=== PATIENT | female | born 1955 | race Caucasian/White ===

== ENCOUNTER 2017-11-02 23:04 | Inpatient (IN) | payer MEDICARE, MEDICAID ==
[2017-11-02] MEDS ORDERED: Mag-Al 1200 mg/1200 mg/30 ML UDCUP PO PRN (23:43)
[2017-11-02] MEDS ORDERED: Lorazepam 2 MG/ML VIAL SLOW IVP PRN (23:43)
[2017-11-02] MEDS ORDERED: Bisacodyl 5 MG TAB PO PRN (23:43)
[2017-11-02] MEDS ORDERED: Acetaminophen 325 MG TAB PO PRN (23:43)
[2017-11-02] MEDS ORDERED: hydrALAZINE 20 MG/ML VIAL SLOW IVP PRN (23:43)
[2017-11-02] MEDS ORDERED: Calcium Carbonate 500 MG ChewTAB PO PRN (23:43)
[2017-11-02] MEDS ORDERED: cloNIDine 0.1 MG TAB PO PRN (23:43)
[2017-11-02] MEDS ORDERED: Promethazine HCl 25 MG/ML VIAL IM PRN (23:43)
[2017-11-02] MEDS ORDERED: Ondansetron HCl/PF 4 MG/2 ML Vial IVP PRN (23:43)
[2017-11-02] MEDS ORDERED: HYDROcodone/Acetaminophen 5/325 mg Tablet PO PRN ×2 (23:43)
[2017-11-02] MEDS ORDERED: Nitroglycerin 0.4 MG TAB (25 Tab Bottle) SL PRN (23:43)
[2017-11-02] MEDS ORDERED: Sodium Chloride 0.9% 1,000 ML IV SCH (23:45)
[2017-11-02] MEDS ORDERED: Morphine 2 MG/ML SYRINGE SLOW IVP PRN (23:49)
[2017-11-02] MEDS ORDERED: Dextrose 5% in Water 1,000 ML IV PRN (23:50)
[2017-11-02] MEDS ORDERED: Dextrose 50% Abboject 50 ML SYRINGE SLOW IVP PRN (23:50)
[2017-11-02] MEDS ORDERED: HumaLOG 300 UNITS/3 ML VIAL SC PRN ×2 (23:50)
[2017-11-03] MEDS ORDERED: Morphine 4 MG/ML VIAL ONE (01:00)
[2017-11-03] MEDS ORDERED: Ondansetron HCl/PF 4 MG/2 ML Vial ONE (01:00)
[2017-11-03 01:59] LABS: #Eosinphils 0.4 thou/uL (0.0-0.7); #Lymphocytes 1.4 thou/uL (1.20-3.40); #Monocytes 1.1 thou/uL (0.11-0.59); #Neutrophils 12.2 thou/uL (1.40-6.50); %Basophils 0.2 % (0.0-1.0); %Eosinophils 2.8 % (0.0-10.0); %Lymphocytes 9.4 % (21.0-51.0); %Monocytes 7.2 % (0.0-10.0); %Neutrophils 80.5 % (42.0-75.0); Hemoglobin 13.2 g/dL (12.0-16.0); Mean Corpuscular HGB CONC 32.3 g/dL (32.0-36.0); Mean Corpuscular Hemoglobin 29.7 pg (27.0-31.0); Mean Corpuscular Volume 92.2 fl (81.0-99.0); Mean Platelet Volume 8.7 fL (7.4-10.4); Platelet Count 281 thou/uL (130-400); RBC Distribution Width 14.6 % (11.5-14.5); Red Blood Cell (RBC) Count 4.43 mill/uL (4.20-5.40); White Blood Cell (WBC) Count 15.1 thou/uL (4.8-10.8)
--- NOTE | 2017-11-03 02:03 | HP ---
PRIMARY CARE PHYSICIAN: Warren Alcantara M.D. CHIEF COMPLAINT: Nausea, vomiting, fever, chills, and abdominal pain. HISTORY OF PRESENTING ILLNESS: Ms. Spencer is a 62-year-old female with known history of COPD and skid strapper laure respiratory failure on home oxygen as well as diabetes, hypertension, and sleep apnea on CPAP at home, who presented to the [place] [facility] with the above-mentioned complaints. History is mainly obtained by the patient herself and electronic medical records have been reviewed. According to Ms. Spencer, she has been feeling poorly for the last 6 days. She started to have signifi cant nausea and vomiting multiple times a day and started to have significant chills and fever where she was using two or three electric blankets at one time. She then started to have pain in her upper abdomen radiating to her chest area and to her back. She describes it as a 9/10, sharp, shooting an d stabbing pain. It was associated with fever, loss of appetite, nausea. She has been throwing up s o much that she has been unable to take any of her oral medications as well. Food makes her situatio n worse. She is feeling overall generalized malaise and weakness. She denies any shortness of breat h or chest pain per se. She presented to [place] with these symptoms and was found to be hemodynamically stable with a b lood pressure of 143/102. Further workup revealed significant jaundice with elevated bilirubin to 17 .1 as well as transaminitis. She also has elevated amylase and lipase at 1763 and 7712 respectively. She also has leukocytosis with left shift. She underwent a KUB of the abdomen, which did not show any evidence of ileus or obstruction. She then underwent a CT scan of the abdomen and pelvis, which showed significant intrahepatic and extrahepatic biliary ductal dilatation with choledocholithiasis. The CBD has a 6 mm calculus. She has received a GI cocktail as well as IV Phenergan, Zofran, Proton ix, and Zosyn in the outside emergency room and was transferred to our facility for further evaluatio n. After presenting here, I was contacted to admit this patient. She is still throwing up quite sig nificantly. PAST MEDICAL HISTORY: 1. Sleep apnea, on CPAP at night. 2. Diabetes mellitus, type 2. 3. Hypertension. 4. Chronic obstructive pulmonary disease. 5. Emphysema. 6. Pulmonary hypertension. PAST PSYCHIATRIC HISTORY: Anxiety and depression. PAST SURGICAL HISTORY: Appendectomy. SOCIAL HISTORY: She is a former smoker, quit smoking about 3-4 years ago. She has no history of wagner g or alcohol abuse. Lives at home. FAMILY HISTORY: Sister from COPD at the age of 60. ALLERGIES: No known medication allergies. CURRENT HOME MEDICATIONS: Not completely list, but she takes Lasix and metformin at home. Further n eeds to be corrected. REVIEW OF SYSTEMS: The following complete review of systems was negative, unless otherwise mentioned in the HPI or below: Constitutional: Weight loss or gain, ability to conduct usual activities. Sk in: Rash, itching. Eyes: Double vision, pain. ENT/Mouth: Nose bleeding, neck stiffness, pain, ten derness. Cardiovascular: Palpitations, dyspnea on exertion, orthopnea. Respiratory: Shortness of breath, wheezing, cough, hemoptysis, fever or night sweats. Gastrointestinal: Poor appetite, abdomi nal pain, heartburn, nausea, vomiting, constipation, or diarrhea. Genitourinary: Urgency, frequency , dysuria, nocturia. Musculoskeletal: Pain, swelling. Neurologic/Psychiatric: Anxiety, depression . Allergy/Immunologic: Skin rash, bleeding tendency. It is negative except for those mentioned in the history and physical. LABORATORY DATA: CBC shows WBC 16.7 with 79% neutrophils, otherwise unremarkable. Her serum professor of chemistry josette show bicarbonate of 22, creatinine 1.48, blood sugar 138, AST 192, ALT 173, alkaline phosphatase 748, troponin less than 0.010. Her lipase is 7712 and her amylase is 1763. Urinalysis showed gluco suria, proteinuria and light ketonuria with a 7-10 wbc's and +3 bacteria. Acute abdominal series rev iewed by myself has no evidence to suggest any ileus or obstruction or pneumoperitoneum. CT scan of the abdomen and pelvis is negative for any peripancreatic inflammatory stranding. There is marked in trahepatic and extrahepatic biliary ductal dilatation. A 6 mm calculus within the distal common bile duct is seen. No main pancreatic ductal dilatation is evident. She also has mixed solid and cystic lesions involving the left adnexal. A 12-lead EKG by my review shows no evidence of acute coronary syndrome. Normal ST and T waves. PHYSICAL EXAMINATION: VITAL SIGNS: At the time of presentation, blood pressure 143/102, pulse of 77, respirations 15, satu rating 98% on room air, temperature 98.1. GENERAL: Sitting upright in bed, in no acute distress. She looks jaundiced, but is awake, alert, an d oriented x3. HEENT: Scleral icterus noticed. No conjunctival pallor. Head is normocephalic, atraumatic. Pupils are equal, reactive to light and accommodation. Extraocular movement intact. NECK: Supple without any lymphadenopathy, JVD or bruit. CHEST: Clear to auscultation without any wheezing, rales or rhonchi. She is minimally tender to the right upper quadrant and epigastric area. No suprapubic tenderness. No guarding, no rebound, or ri gidity. ABDOMEN: Morbidly obese. EXTREMITIES: Free of any cyanosis, clubbing, or edema. NEUROLOGIC: Nonfocal. SKIN: Free of any rashes or bruises. Feels warm and dry to touch. PSYCHIATRIC: Normal affect. IMPRESSION AND PLAN: 1. Acute gallstone pancreatitis. The patient will be kept n.p.o. with generous intravenous fluids f or now. We will monitor her blood sugars closely as she is a diabetic. Add dextrose to the fluids i f she becomes hypoglycemic. We will consult General Surgery as well as Gastroenterology in the [facility]. She most likely will need ERCP and eventual cholecystectomy. We will repeat her amylase and lip ase in the morning and follow her clinically for any worsening signs and symptoms. We will monitor s trict I's and O's and her urine output. Check PT and INR to assess the severity index. Clinically, the patient appears comfortable at this time. Add p.r.n. pain medication and antiemetics as well. 2. Obstructive jaundice and transaminitis. This is secondary to impacted common bile duct stone. S he will most likely need ERCP versus MRCP at the very least as above. We will consult Gastroenterolo gy in the morning. There is always a possibility of cholecystitis in this situation, so we will star t her on empiric antibiotics, namely Zosyn. 3. Urinary tract infection. The patient is quite asymptomatic, but her being a diabetic, this most likely represents a true infection. As above, she will be on IV antibiotic for now. Urine culture w ill be sent. 4. Diabetes mellitus. The patient will be n.p.o. and we will start her on IV fluids. Use insulin s liding scale with hypoglycemia protocol and followed the blood sugar a.c. and at bedtime. 5. Chronic respiratory failure with home oxygen. This is secondary to chronic obstructive pulmonary disease. Add DuoNebs as needed. The patient is compensated at this time. 6. Sleep apnea. We will order CPAP for her use in the hospital. 7. Code status: FULL CODE. Discussed with the patient. 8. Add deep venous thrombosis and gastrointestinal prophylaxis. 9. Morbid obesity. Her BMI is not calculated as yet. DISPOSITION: Ms. Spencer is currently being admitted for acute gallstone pancreatitis and impacted gal lstone with obstructive jaundice. Estimated length of stay is at least 2-3 midnight. Further manage ment will depend upon her clinical course.
[2017-11-03 02:12] VITALS: BMI 42.0
[2017-11-03 02:28] LABS: Lipase 6737 U/L (8-78)
[2017-11-03 02:29] LABS: ALT (SGPT) 159 U/L (8-55); AST (SGOT) 175 U/L (5-34); Albumin 3.4 g/dL (3.4-4.8); Alkaline Phosphatase 750 U/L (40-150); Anion Gap 17 mmol/L (10-20); BUN (Urea Nitrogen) 16 mg/dL (9.8-20.1); Bilirubin, Direct Greater than 10.0 mg/dL (0.1-0.3); Bilirubin, Total 17.4 mg/dL (0.2-1.2); Calc. Creatinine Clearance 82 mL/min (70-130); Calcium 9.9 mg/dL (7.8-10.44); Carbon Dioxide 19 mmol/L (23-31); Chloride 104 mmol/L (98-107); Estimated GFR-MDRD 43; Glucose 124 mg/dL (80-115); Phosphorus 3.6 mg/dL (2.3-4.7); Potassium 3.9 mmol/L (3.5-5.1); Protein, Total 8.1 g/dL (6.0-8.3); Sodium 136 mmol/L (136-145)
[2017-11-03] MEDS: D5 1/2 NS w/20 mEq KCL 1,000 ML IV SCH ×3 (02:37→16:56)
[2017-11-03] MEDS ORDERED: Morphine 4 MG/ML VIAL IV PRN (06:48)
[2017-11-03] MEDS ORDERED: Enoxaparin Sodium 40 MG/0.4 ML SYRINGE SC SCH (09:00)
[2017-11-03 09:31] LABS: HBCM Index 0.12 S/CO (0-0.79); HBSAg Index 0.15 S/CO (0-0.99); Hep A IgM AB Non-Reactive (NonReactive); Hep A IgM S/CO 0.09 S/CO (0-0.79); Hep B Surf Ag Non-Reactive S/CO (NonReactive); Hep C IgG Ab Non-Reactive (NonReactive); Hep C Index 0.19 S/CO (0-0.79); Hepatitis B Core IGM Abs Non-Reactive (NonReactive)
[2017-11-03] MEDS: Famotidine/PF 20 mg/2ml Vial SLOW IVP SCH (09:51)
[2017-11-03] MEDS: Morphine 4 MG/ML VIAL SLOW IVP PRN ×3 (10:05→20:21)
--- NOTE | 2017-11-03 14:45 | PDOC.PN ---
- Subjective Encounter Start Date: 11/03/17 Encounter Start Time: 09:00 Pt seen for followup re: acute pancreatitis. Reports pain over mid-back and epigastrium. No fevers or chills. nausea+, no vomiting. - Objective MAR Reviewed: Yes Vital Signs & Weight: Vital Signs (12 hours) Temp Pulse Resp BP Pulse Ox 11/03/17 11:46 98.0 F 78 16 91 L 11/03/17 08:00 97.5 F L 80 16 92 L 11/03/17 07:22 97.5 F L 80 16 104/67 92 L Weight Admit Weight 245 lb Weight 245 lb I&O: 11/02/17 11/03/17 11/04/17 06:59 06:59 06:59 Intake Total 750 Output Total 300 Balance 450 Result Diagrams: 11/03/17 01:21 11/03/17 01:21 Additional Labs: Accuchecks 11/03/17 11/03/17 12:13 06:17 POC Glucose 114 H 132 H Phys Exam - Physical Examination Morbid obesity HEENT: PERRLA, moist MMs, oral pharynx no lesions Scleral icterus Neck: no nodes, no JVD, supple, full ROM Respiratory: no wheezing, no rales, no rhonchi, clear to auscultation bilateral Cardiovascular: RRR, no rub Gastrointestinal: soft, positive bowel sounds distended; mild epigastric tenderness, no guarding or rigidity Neurological: moves all 4 limbs Psychiatric: normal affect Skin: no rash Dx/Plan (1) Gallstone pancreatitis Code(s): K85.10 - BILIARY ACUTE PANCREATITIS WITHOUT NECROSIS OR INFECTION Status: Acute Comment: GI consult pending, gen surg consult pending, trend LFTs, continue PRN IV morphine (2) Adnexal mass Code(s): N94.9 - UNSP COND ASSOC W FEMALE GENITAL ORGANS AND MENSTRUAL CYCLE Status: Acute Comment: For pelvic ultrasound when pt is clinically stable (3) COPD (chronic obstructive pulmonary disease) Status: Chronic Comment: stable (4) DM type 2 (diabetes mellitus, type 2) Status: Chronic Comment: accuchecks, insulin sliding scale (5) HTN (hypertension) Code(s): I10 - ESSENTIAL (PRIMARY) HYPERTENSION Status: Chronic Comment: Monitor vital signs, titrate antihypertensives as needed (6) MARSHALL (obstructive sleep apnea) Code(s): G47.33 - OBSTRUCTIVE SLEEP APNEA (ADULT) (PEDIATRIC) Status: Chronic Comment: CPAP when asleep - Plan * . Review of Systems - Review of Systems Constitutional: negative: fever, chills, sweats, weakness, malaise Respiratory: negative: Cough, Shortness of Breath, Hemoptysis, SOB with Excertion, Pleuritic Pain, Wheezing Cardiovascular: negative: chest pain, palpitations, orthopnea, paroxysmal nocturnal dyspnea, edema, light headedness Gastrointestinal: Nausea, Abdominal Pain. negative: Vomiting, Diarrhea, Constipation, Melena, Hematochezia Musculoskeletal: Back Pain - Medications/Allergies Allergies/Adverse Reactions: Allergies Allergy/AdvReac Type Severity Reaction Status Date / Time No Known Drug Allergies Allergy Verified 06/23/15 23:50 Medications: Current Medications Acetaminophen (Tylenol) 650 mg PO Q4H PRN PRN Reason: Headache/Fever or Pain Hydrocodone Bitart/Acetaminophen ([place] 5/325) 1 tab PO Q4H PRN PRN Reason: Moderate Pain (4-6) Hydrocodone Bitart/Acetaminophen ([place] 5/325) 2 tab PO Q4H PRN PRN Reason: Severe Pain (7-10) Al Hydroxide/Mg Hydroxide (Maalox) 30 ml PO Q6H PRN PRN Reason: Heartburn or Indigestion Albuterol/Ipratropium (Duoneb) 3 ml NEB Q4H PRN PRN Reason: SOB &/or Wheezing Bisacodyl (Dulcolax) 10 mg PO DAILYPRN PRN PRN Reason: Constipation Calcium Carbonate (Tums) 1,000 mg PO Q4H PRN PRN Reason: Heartburn or Indigestion Clonidine (Catapres) 0.1 mg PO Q4H PRN PRN Reason: Systolic BP > 160 Dextrose/Water (Dextrose 50%) 25 gm SLOW IVP PRN PRN PRN Reason: Hypoglycemia Famotidine (Pepcid) 20 mg SLOW IVP DAILY JUANCHO Last Admin: 11/03/17 09:51 Dose: 20 mg Glucagon (Glucagon) 1 mg IM PRN PRN PRN Reason: Hypoglycemia Hydralazine HCl (Apresoline) 10 mg SLOW IVP Q4H PRN PRN Reason: Systolic BP > 170 Dextrose/Water (D5w) 1,000 mls @ 0 mls/hr IV .Q0M PRN; As Directed PRN Reason: Hypoglycemia Potassium Chloride/Dextrose/Sod Cl (D5 1/2 Ns W/20 Meq Kcl) 1,000 mls @ 125 mls /hr IV .Q8H [facility] Last Admin: 11/03/17 09:55 Dose: 1,000 mls Insulin Human Lispro (Humalog) 0 units SC .MODERATE SLIDING SC PRN PRN Reason: Moderate Correctional Scale Insulin Human Lispro (Humalog) 0 units SC .BEDTIME SLIDING SC PRN PRN Reason: Bedtime Correctional Scale Lorazepam (Ativan) 1 mg SLOW IVP Q4H PRN PRN Reason: Anxiety/Agitation Morphine Sulfate (Morphine) 4 mg SLOW IVP Q4H PRN PRN Reason: Pain Last Admin: 11/03/17 10:05 Dose: 4 mg Nitroglycerin (Nitrostat) 0.4 mg SL Q5MIN PRN PRN Reason: Chest Pain Ondansetron HCl (Zofran) 4 mg IVP Q6H PRN PRN Reason: Nausea/Vomiting Promethazine HCl (Phenergan) 12.5 mg IM Q4H PRN PRN Reason: Nausea/Vomiting Sodium Chloride (Flush - Normal Saline) 10 ml IVF Q12HR [facility] Last Admin: 11/03/17 09:56 Dose: Not Given Sodium Chloride (Flush - Normal Saline) 10 ml IVF PRN PRN PRN Reason: Saline Flush
--- NOTE | 2017-11-03 15:16 | CON ---
DATE OF CONSULTATION: 11/03/2017 REQUESTING PHYSICIAN: Dr. Brunner. REASON FOR CONSULTATION: Gallstone pancreatitis. HISTORY OF PRESENT ILLNESS: Margo Spencer is a 62-year-old woman previously seen by my GI colleague, Ana Maria Suggs. She had a colonoscopy in 2014 showing only left-sided diverticulosis and was otherwise normal. The patient also has a significant history of COPD and pulmonary hypertension as w ell as sleep apnea. She is on home oxygen and sleeps with a CPAP. She also has diabetes and obesity . She denies any prior history of gallbladder, liver, or pancreatic issues. Back around [facility], she was having some upper abdominal pain which resolved on its own. This occurred again 3 weeks ago and then resolved, but now for the past week, she states that she has been having nausea and rep eated episodes of nonbloody emesis. She has also been having subjective fevers and chills at home. Then, yesterday she started having acute worsening of epigastric pain, which seems to shoot-through t o the back and she presented for evaluation. In the [place], she had lab work showing elevat ed liver and pancreatic enzymes and had a CT of the abdomen and pelvis which demonstrated choledochol ithiasis with a 6 mm stone in the common bile duct and intra and extrahepatic biliary dilation. She has been admitted to the hospital and has been receiving IV fluids as well as analgesia and antiemeti cs. She was started on Zosyn as well. She says her symptoms today are significantly improved from y esterday. Her urine is dark orange. She has been afebrile and hemodynamically stable here with a mi ld leukocytosis. PAST MEDICAL HISTORY: COPD, on home oxygen; pulmonary hypertension; sleep apnea, on CPAP; appendecto my; depression and anxiety; diabetes; hypertension; obesity; left-sided diverticulosis, on colonoscop y in 2014. ALLERGIES: No known drug allergies. OUTPATIENT MEDICATIONS: Albuterol, DuoNebs, Symbicort, Spiriva, theophylline, sertraline, furosemide , metformin. SOCIAL HISTORY: She is a former smoker. No alcohol or drug use. FAMILY HISTORY: Her sister had COPD. PHYSICAL EXAMINATION: VITAL SIGNS: Temperature 97.5, pulse 80, blood pressure 104/67, 92% oxygen saturation on 2 liters na jim cannula. GENERAL: Obese 62-year-old woman sitting up in bed comfortably, in no acute distress. SKIN: No rash visible or palpable. EYES: Mild scleral icterus. Extraocular movements intact. ENT: Mucous membranes moist, no oral lesions. LYMPH: No submandibular, supraclavicular lymphadenopathy. THYROID: Nontender to palpation. HEART: Regular rate and rhythm. LUNGS: Clear to auscultation bilaterally. No respiratory distress. She is on oxygen. ABDOMEN: Bowel sounds present, soft, tender to palpation in the epigastrium, obese. No guarding, re bound tenderness. EXTREMITIES: No peripheral edema. VESSELS: Radial pulses 2+ bilaterally. NEUROLOGICAL: Cranial nerves II-XII intact bilaterally. No focal deficits. LABORATORY STUDIES: Lipase 6757, total bilirubin 17.4, alkaline phosphatase 750, AST 175, ALT 159, a lbumin 3.4, BUN 16, creatinine 1.25, glucose 114. Sodium 136, potassium 3.9. WBC 15.1, hemoglobin 1 3.2, platelets 281. IMAGING STUDIES: CT of the abdomen from yesterday demonstrated intra and extrahepatic biliary dilati on. There is choledocholithiasis with a 6 mm stone in the distal common bile duct. There are really no significant peripancreatic inflammatory changes. There is also a mixed solid and cystic lesion i nvolving the left adnexa measuring 8.3 cm. ASSESSMENT AND PLAN: 1. Choledocholithiasis. 2. Gallstone pancreatitis. The patient's degree of LFT elevation is quite high for choledocholithiasis, but this is what the magdalene ging shows and clinically makes the most sense. I agree with supportive care for the pancreatitis as you are doing including IV fluids, remaining n.p.o., and pain and nausea control. There is no evide nce of cholangitis though she does have a mild leukocytosis. She is afebrile and hemodynamically sta ble. I discussed with her that ERCP is indicated to extract the stone from the common bile duct, lik marichuy perform biliary sphincterotomy and clear the bile duct. That is going to need to be followed by cholecystectomy at some point and I understand surgical consultation is also pending. We will plan f or ERCP tomorrow. I discussed the benefits and also risk of the procedure with the patient including worsening of pancreatitis. The patient desires to proceed. Further recommendations following ERCP tomorrow.
--- NOTE | 2017-11-03 15:54 | CON ---
DATE OF CONSULTATION: 11/03/2017 REQUESTING PHYSICIAN: Dr. Brunner. HISTORY OF PRESENT ILLNESS: This is a 62-year-old woman with a history of diabetes mellitus. The migdalia cj presented to [facility] in [place] with insidious onset of recurrent epigastric to righ t upper quadrant abdominal pain. The pain was described as sharp, rated at 10/10 at maximum intensit y. She experienced similar pain 3 weeks ago which was following meals. The pain resolved without an y hospital admission or intervention. This current pain started approximately 6 days ago following a meal consisting of meatloaf. Pain was described as sharp, radiating to the back. Pain was associat ed with multiple episodes of nausea and emesis. Overnight, patient developed profound chills, which is new. She presented to the [place] [facility]. Following workup, the patient was t [facility] to [facility] for upper level of care. She admits to frequent flatulence over the las t one week and abdominal bloating. She denies any diarrhea. Although she did not measure her body t emperature, she felt feverish over the last 24 hours and did break out in sweats overnight. PAST MEDICAL HISTORY: Significant for type 2 diabetes mellitus, COPD, obstructive sleep apnea, essen tial hypertension, pulmonary hypertension, chronic anxiety and depression. SURGICAL HISTORY: Pertinent for open appendectomy many years ago. SOCIAL HISTORY: Patient is a former cigarette smoker. She used to smoke up to a pack of cigarette p er day, did so for approximately 35 years. She has not smoked over the last 3-4 years. The patient denies any alcohol or illicit drug abuse history. FAMILY HISTORY: Noncontributory for this patient's age. MEDICATIONS: I have reviewed prehospitalization medications which includes Symbicort 160/4.5 mg 2 pu ffs b.i.d., furosemide 20 mg p.o. daily, metformin 1000 mg p.o. b.i.d., prednisone 40 mg p.o. daily, sertraline 200 mg p.o. daily, theophylline 400 mg p.o. daily, and Spiriva inhalation daily. ALLERGIES: Patient denies any known drug allergies. REVIEW OF SYSTEMS: Ten point review of system is essentially unremarkable except for as stated in migdalia lazar medical history and chief complaint. PHYSICAL EXAMINATION: GENERAL: This reveals a 62-year-old normally developed woman who is otherwise coherent and interacti ve and appears stated age. The patient is alert and oriented x3. She appears to be in no significan t acute distress at the time of my evaluation. VITAL SIGNS: Today includes blood pressure 104/67, pulse 80, respiratory rate is 16, maximum tempera ture in the last 24 hours is 99.1 degrees Fahrenheit, oxygen saturation is 92% on 2 liters by nasal c annula oxygen. HEENT: Examination reveals normocephalic and atraumatic. Pupils are equal, round, and reactive to l ight and accommodation. She has bilateral scleral icterus present. Oral mucosa reveals poor oral hy giene. Otherwise, no intraoral lesions present. NECK: Supple. No palpable lymphadenopathy or thyromegaly present. She has no jugular venous disten tion noted. HEART: Reveals regular rate and rhythm, no murmurs or gallops auscultated. LUNGS: Clear to auscultation bilaterally. Her breathing is regular and unlabored. ABDOMEN: Soft and obese with epigastric to right upper quadrant tenderness to palpation. She has a positive Flor sign. Liver and spleen are otherwise nonpalpable below costal margins. She has a he aled Victoriano-Tj incision which is consistent with previous history of open appendectomy in the dista nt past. EXTREMITIES: Reveals 2+ radial and pedal pulses bilaterally. She has no ankle edema present. NEUROLOGIC: Examination reveals no focal deficits present. LABORATORY DATA: Pertinent laboratory findings today includes CBC with 15,100 white blood cells, hem oglobin 13.2, hematocrit is 40.8, platelet count is 281,000. Metabolic profile: Sodium 136, potassium 3.9, chloride is 104, bicarbonate 19, BUN 16, creatinine is 1.25, glucose is 124, magnesium is 2.0, phosphorus is 3.6, calcium is 9.9, total bilirubin is 17.4, AST 175, ALT 159, alkaline phosphatase 750. Serum lipase is elevated at 6,737. Hepatitis profile is negative for acute hepatitis. I have personally reviewed the CT scan of the abd omen and pelvis which is remarkable for a 6 mm stone in the distal common bile duct. There appears t o be some cholesterol stones within the gallbladder lumen itself. There is extensive amount of intra and extrahepatic ductal dilatation. The patient did have remote abdominal ultrasound in 2014, which was significant at that time for gall stones. IMPRESSION: 1. Acute cholecystitis with cholelithiasis. 2. Choledocholithiasis. 3. Acute gallstone pancreatitis. 4. History of type 2 diabetes mellitus. 5. History of tobacco related chronic obstructive pulmonary disease. RECOMMENDATIONS: 1. Urgent evaluation by Gastroenterology and consideration for possible ERCP and common bile duct st one extraction. 2. Post-ERCP, laparoscopic cholecystectomy. The above findings and plan have been discussed with th e patient in the presence of her nurse. I have informed the patient of the risk and benefits of prop osed laparoscopic cholecystectomy which include, but not limited to bleeding, infection, injury to bi le duct and surrounding structures. The patient indicates understanding of information given. I ans wered all of the questions. Thank you again, Dr. Brunner for allowing me the opportunity to participate in the care of this patie nt.
[2017-11-04] MEDS: Morphine 4 MG/ML VIAL SLOW IVP PRN ×4 (01:12→11:53)
[2017-11-04] MEDS: D5 1/2 NS w/20 mEq KCL 1,000 ML IV SCH ×3 (01:14→16:03)
[2017-11-04 09:12] LABS: ALT (SGPT) 98 U/L (8-55); AST (SGOT) 76 U/L (5-34); Albumin 2.9 g/dL (3.4-4.8); Alkaline Phosphatase 644 U/L (40-150); Lipase 75 U/L (8-78)
[2017-11-04 09:42] LABS: Bilirubin, Direct 12.5 mg/dL (0.1-0.3)
[2017-11-04] MEDS ORDERED: Lidocaine 1% PF 5 ML VIAL ONE (11:23)
[2017-11-04] MEDS ORDERED: PHENYLEPHRINE-NS 100 MCG/ML 10 ML SYRINGE ONE (11:23)
[2017-11-04] MEDS ORDERED: Glycopyrrolate 0.2 MG/ML 5 ML SYRINGE ONE (11:23)
[2017-11-04] MEDS ORDERED: Succinylcholine Chloride 20 MG/ML 10 ml SYRINGE FS ONE (11:23)
[2017-11-04] MEDS ORDERED: PROPOFOL 200 MG/20 ML VIAL ONE (11:23)
[2017-11-04] MEDS ORDERED: Clopidogrel Bisulfate 75 MG TAB ONE (11:51)
[2017-11-04] MEDS ORDERED: Famotidine 40 MG/4 ML VIAL SLOW IVP SCH (12:00)
[2017-11-04] MEDS: Famotidine/PF 20 mg/2ml Vial SLOW IVP SCH (12:29)
[2017-11-04] MEDS ORDERED: Iothalamate Meglumine 60% 50 ML VIAL FS ONE (12:57)
[2017-11-04] MEDS ORDERED: Indomethacin 50 MG SUPP ONE (12:57)
[2017-11-04] MEDS ORDERED: Fentanyl 100 MCG/2 ML VIAL ONE (13:10)
[2017-11-04] MEDS ORDERED: cefTRIAXone\\ROCEPHIN 1 GM VIAL ONE (13:18)
--- NOTE | 2017-11-04 13:54 | PDOC.PN ---
- Subjective Encounter Start Date: 11/04/17 Encounter Start Time: 08:20 Pt seen for followup re: biliary pancreatitis. reports she feels slightly better. nausea+, abdo pain better. - Objective MAR Reviewed: Yes Vital Signs & Weight: Vital Signs (12 hours) Temp Pulse Resp BP Pulse Ox 11/04/17 11:35 97.9 F 67 18 114/77 91 L 11/04/17 08:00 97.9 F 67 18 92 L 11/04/17 07:20 97.8 F 64 20 115/79 92 L 11/04/17 04:00 98.5 F 66 16 122/83 90 L Weight Admit Weight 245 lb Weight 245 lb I&O: 11/03/17 11/04/17 11/05/17 06:59 06:59 06:59 Intake Total 750 1500 1375 Output Total 300 400 900 Balance 450 1100 475 Result Diagrams: 11/03/17 01:21 11/03/17 01:21 Additional Labs: Accuchecks 11/04/17 11/04/17 11/03/17 10:40 05:24 20:20 POC Glucose 105 106 103 11/03/17 16:27 POC Glucose 116 H Phys Exam - Physical Examination Morbid obesity HEENT: PERRLA, moist MMs, oral pharynx no lesions Sclera icteric Neck: no nodes, no JVD, supple, full ROM Respiratory: no wheezing, no rales, no rhonchi, clear to auscultation bilateral Cardiovascular: RRR, no rub Gastrointestinal: soft, positive bowel sounds Epigastric tenderness, Flor sign+; no guarding or rigidity Musculoskeletal: pulses present Neurological: moves all 4 limbs Psychiatric: normal affect, A&O x 3 Skin: no rash Dx/Plan (1) Gallstone pancreatitis Code(s): K85.10 - BILIARY ACUTE PANCREATITIS WITHOUT NECROSIS OR INFECTION Status: Acute Comment: For ERCP today, likely for cholecystectomy tomorrow. Continue PRN IV morphine (2) Obstructive jaundice Code(s): K83.8 - OTHER SPECIFIED DISEASES OF BILIARY TRACT Status: Acute (3) Adnexal mass Code(s): N94.9 - UNSP COND ASSOC W FEMALE GENITAL ORGANS AND MENSTRUAL CYCLE Status: Acute Comment: pelvic ultrasound when pt is clinically stable (4) COPD (chronic obstructive pulmonary disease) Status: Chronic Comment: stable (5) DM type 2 (diabetes mellitus, type 2) Status: Chronic Comment: continue accuchecks, insulin sliding scale (6) HTN (hypertension) Code(s): I10 - ESSENTIAL (PRIMARY) HYPERTENSION Status: Chronic Comment: titrate antihypertensives as needed (7) MARSHALL (obstructive sleep apnea) Code(s): G47.33 - OBSTRUCTIVE SLEEP APNEA (ADULT) (PEDIATRIC) Status: Chronic Comment: CPAP when asleep - Plan * . Review of Systems - Review of Systems Constitutional: negative: fever, chills, sweats, weakness, malaise Respiratory: negative: Cough, Shortness of Breath, Hemoptysis, SOB with Excertion, Pleuritic Pain, Wheezing Cardiovascular: negative: chest pain, palpitations, orthopnea, paroxysmal nocturnal dyspnea, edema, light headedness, other Gastrointestinal: Nausea. negative: Vomiting, Abdominal Pain, Diarrhea, Constipation, Melena, Hematochezia Genitourinary: negative: Dysuria, Frequency, Incontinence, Hematuria, Retention - Medications/Allergies Allergies/Adverse Reactions: Allergies Allergy/AdvReac Type Severity Reaction Status Date / Time No Known Drug Allergies Allergy Verified 06/23/15 23:50 Medications: Current Medications Acetaminophen (Tylenol) 650 mg PO Q4H PRN PRN Reason: Headache/Fever or Pain Hydrocodone Bitart/Acetaminophen ([place] 5/325) 1 tab PO Q4H PRN PRN Reason: Moderate Pain (4-6) Hydrocodone Bitart/Acetaminophen ([place] 5/325) 2 tab PO Q4H PRN PRN Reason: Severe Pain (7-10) Al Hydroxide/Mg Hydroxide (Maalox) 30 ml PO Q6H PRN PRN Reason: Heartburn or Indigestion Albuterol/Ipratropium (Duoneb) 3 ml NEB Q4H PRN PRN Reason: SOB &/or Wheezing Bisacodyl (Dulcolax) 10 mg PO DAILYPRN PRN PRN Reason: Constipation Calcium Carbonate (Tums) 1,000 mg PO Q4H PRN PRN Reason: Heartburn or Indigestion Clonidine (Catapres) 0.1 mg PO Q4H PRN PRN Reason: Systolic BP > 160 Dextrose/Water (Dextrose 50%) 25 gm SLOW IVP PRN PRN PRN Reason: Hypoglycemia Famotidine (Pepcid) 20 mg SLOW IVP DAILY [facility] Famotidine (Pepcid) 20 mg SLOW IVP NOW [facility] Stop: 11/04/17 14:00 Last Admin: 11/04/17 11:58 Dose: Not Given Glucagon (Glucagon) 1 mg IM PRN PRN PRN Reason: Hypoglycemia Hydralazine HCl (Apresoline) 10 mg SLOW IVP Q4H PRN PRN Reason: Systolic BP > 170 Dextrose/Water (D5w) 1,000 mls @ 0 mls/hr IV .Q0M PRN; As Directed PRN Reason: Hypoglycemia Potassium Chloride/Dextrose/Sod Cl (D5 1/2 Ns W/20 Meq Kcl) 1,000 mls @ 125 mls /hr IV .Q8H [facility] Last Admin: 11/04/17 11:58 Dose: Not Given Insulin Human Lispro (Humalog) 0 units SC .MODERATE SLIDING SC PRN PRN Reason: Moderate Correctional Scale Insulin Human Lispro (Humalog) 0 units SC .BEDTIME SLIDING SC PRN PRN Reason: Bedtime Correctional Scale Lorazepam (Ativan) 1 mg SLOW IVP Q4H PRN PRN Reason: Anxiety/Agitation Morphine Sulfate (Morphine) 4 mg SLOW IVP Q4H PRN PRN Reason: Pain Last Admin: 11/04/17 11:53 Dose: 4 mg Nitroglycerin (Nitrostat) 0.4 mg SL Q5MIN PRN PRN Reason: Chest Pain Ondansetron HCl (Zofran) 4 mg IVP Q6H PRN PRN Reason: Nausea/Vomiting Promethazine HCl (Phenergan) 12.5 mg IM Q4H PRN PRN Reason: Nausea/Vomiting Sodium Chloride (Flush - Normal Saline) 10 ml IVF Q12HR [facility] Last Admin: 11/04/17 07:45 Dose: 10 ml Sodium Chloride (Flush - Normal Saline) 10 ml IVF PRN PRN PRN Reason: Saline Flush
--- NOTE | 2017-11-04 14:10 | PRG ---
DATE OF SERVICE: 11/04/2017 SUBJECTIVE: Ms. Spencer is a 62-year-old morbidly obese woman admitted with gallstone pancreatitis. O vernight, the patient reports significant improvement with regards to her abdominal pain. She denies any nausea or vomiting. She denies any fevers or chills today. OBJECTIVE: VITAL SIGNS: Today includes blood pressure 115/79, pulse 64, respiratory rate 20, maximum temperatur e in the last 24 hours is 99.4 degrees Fahrenheit, oxygen saturation 92% on 2 liters by nasal cannula oxygen. HEENT: Examination reveals normocephalic and atraumatic. She has bilateral scleral icterus present. She is significantly jaundiced. HEART: Reveals regular rate and rhythm. No murmurs or gallops auscultated. LUNGS: Clear to auscultation bilaterally. Breathing is regular and unlabored. ABDOMEN: Soft and obese. She has mild right upper quadrant tenderness to palpation with no positive Flor's sign. NEUROLOGIC: Examination reveals no focal deficits present. LABORATORY DATA: Pertinent laboratory findings today include LFTs with stable. Total bilirubin at 1 7.0. AST and ALT are decreasing at 76 and 98 respectively. Serum lipase is now normal at 75. IMPRESSION: 1. Acute cholecystitis with cholelithiasis. 2. Choledocholithiasis. 3. Resolved acute gallstone pancreatitis. PLAN: Today includes ERCP per Gastroenterology. This will be followed by laparoscopic cholecystecto my. The above findings and plan discussed with the patient who indicates understanding of the information given. I have answered all of their questions.
[2017-11-04] MEDS ORDERED: SUGAMMADEX SODIUM 200 MG/2 ML VIAL ONE (14:31)
--- NOTE | 2017-11-04 15:22 | RAD ---
ERCP: DATE: 11/04/17 HISTORY: Abdominal pain. COMPARISON: None. FINDINGS: ERCP was performed. Seven fluoroscopic images demonstrate retrograde opacification of the common bile duct and central intrahepatic biliary system. Two images demonstrate what appears to be a balloon th at is inflated along the distal aspect of the common bile duct. There are no obvious/persistent filli ng defects. IMPRESSION: Fluoroscopy as above. POS: [facility]
--- NOTE | 2017-11-04 15:28 | OP ---
PREOPERATIVE DIAGNOSES: Choledocholithiasis and gallstone pancreatitis. OPERATIVE NOTE: Informed consent was obtained from the patient. She was sedated with general anesth esia and placed in the prone position. The duodenal scope was advanced easily to the second portion of the duodenum where the ampulla was identified. There was some edema and erosion of the periampull maya area just proximal to the ampullary opening. There was a second small apparent opening above the ampulla. There was a moderate diverticulum just distal to the ampulla opening. The common bile sol t was selectively cannulated easily on first attempt with the wire. The sphincterotome was advanced into the duct and cholangiogram was performed. The common bile duct was mildly dilated at around 8 m m. No obvious filling defect was present. A moderately large sphincterotomy was performed. A 12 mm balloon was used to sweep the bile duct. The 12 mm balloon passes easily through the sphincterotomy . Occlusion cholangiogram and balloon sweep of the bile duct confirmed the duct to be clear. The ga llbladder did fill with some contrast. A biopsy was obtained from the area just proximal to the ampu lla where the erosion and edema were. IMPRESSION: 1. Cholangiogram showing common bile duct, mildly dilated to 8-9 mm. There was no obvious filling d efect. The intra- and extrahepatic ducts were normal. The stone appears to have passed. 2. Mild edema and erosion above the ampulla with a small second opening. This area was biopsied. 3. Moderate sphincterotomy performed. Balloon sweep of the bile duct and occlusion cholangiogram co nfirms the duct to be clear. The 12 mm balloon passes easily through the sphincterotomy. RECOMMENDATIONS: 1. Await histopathology. 2. Follow trend of the liver function tests. 3. Cholecystectomy tomorrow.
[2017-11-05] MEDS: D5 1/2 NS w/20 mEq KCL 1,000 ML IV SCH ×3 (00:21→17:54)
--- NOTE | 2017-11-05 02:15 | PRG ---
DATE OF SERVICE: 11/04/2017 SUBJECTIVE: The patient is status post ERCP today, awaiting to undergo laparoscopic cholecystectomy in the morning. The patient will be n.p.o. after midnight and she is understanding this plan. She c urrently has no issues. She is tolerating clear liquids and her pain is controlled. PHYSICAL EXAMINATION: VITAL SIGNS: Temperature is 98.6, heart rate 55, blood pressure 131/84, respirations 16, oxygen satu ration 95% on 2 liters via nasal cannula. GENERAL: The patient is resting comfortably. She is alert and oriented x3. [place] coma scale is 1 5. LUNGS: Clear to auscultation. HEART: Regular rate and rhythm. ABDOMEN: Soft, flat, and minimally tender in the right upper quadrant. ASSESSMENT AND PLAN: 1. Acute cholecystitis with cholelithiasis. 2. Choledocholithiasis. 3. Resolved acute gallstone pancreatitis. 4. Status post ERCP. Plan will be to take the patient to the operating room in the morning for a laparoscopic cholecystect jaylyn and manage the patient postoperatively per the primary team.
[2017-11-05 08:34] LABS: ALT (SGPT) 75 U/L (8-55); AST (SGOT) 50 U/L (5-34); Albumin 2.7 g/dL (3.4-4.8); Alkaline Phosphatase 532 U/L (40-150); Bilirubin, Direct 9.9 mg/dL (0.1-0.3); Bilirubin, Total 12.9 mg/dL (0.2-1.2); Lipase 37 U/L (8-78); Protein, Total 6.3 g/dL (6.0-8.3)
[2017-11-05] MEDS: Famotidine 40 MG/4 ML VIAL SLOW IVP SCH (08:55)
[2017-11-05] MEDS ORDERED: CEFAZOLIN/Water 2 GM/20 ML SYRINGE ONE (09:35)
[2017-11-05] MEDS ORDERED: Hydrocortisone Sod Succ/PF 100 mg/2 ml Vial ONE (10:08)
[2017-11-05] MEDS ORDERED: Bupivacaine/Epinephrine 0.25% 30 ML VIAL ONE (11:39)
[2017-11-05] MEDS ORDERED: Fentanyl 100 MCG/2 ML VIAL ONE ×3 (11:57→15:52)
[2017-11-05] MEDS ORDERED: Lidocaine 1% PF 5 ML VIAL ONE (12:56)
[2017-11-05] MEDS ORDERED: Dexamethasone 20 MG/5 ML VIAL ONE (12:56)
[2017-11-05] MEDS ORDERED: Ondansetron HCl/PF 4 MG/2 ML Vial ONE (12:56)
[2017-11-05] MEDS ORDERED: ePHEDrine/0.9% NaCl/PF SYRINGE 50 mg/10 ml ONE (12:56)
[2017-11-05] MEDS ORDERED: Glycopyrrolate 0.2 MG/ML 5 ML SYRINGE ONE (12:56)
[2017-11-05] MEDS ORDERED: Morphine 4 MG/ML VIAL SLOW IVP PRN ×2 (14:31→15:01)
[2017-11-05] MEDS ORDERED: Promethazine HCl 25 MG/ML VIAL SLOW IVP PRN (14:31)
[2017-11-05] MEDS ORDERED: traMADol HCl 50 MG TAB PO PRN ×3 (14:59→21:04)
--- NOTE | 2017-11-05 15:05 | OP ---
DATE OF OPERATION: 11/05/2017 PREOPERATIVE DIAGNOSES: 1. Acute cholecystitis and cholelithiasis. 2. Choledocholithiasis, status post endoscopic retrograde cholangiopancreatography with common bile duct stone extraction. POSTOPERATIVE DIAGNOSES: 1. Acute cholecystitis and cholelithiasis. 2. Choledocholithiasis, status post endoscopic retrograde cholangiopancreatography with common bile duct stone extraction. PROCEDURES PERFORMED: 1. Laparoscopic cholecystectomy. 2. Frozen biopsy. SURGEON: Jakub Perez D.O. ANESTHESIA: General endotracheal. ESTIMATED BLOOD LOSS: 50 mL. FLUIDS GIVEN: 400 mL crystalloids. SPONGE AND INSTRUMENT COUNT: Certified as correct x2. COMPLICATIONS: None apparent at time of operation. INDICATIONS FOR OPERATION: A 62-year-old woman presented with abdominal pain. She was admitted with a clinical diagnosis of acute cholecystitis with cholelithiasis, choledocholithiasis and acute galls tone pancreatitis. Pancreatitis has since resolved. The patient underwent ERCP yesterday with commo n bile duct stone extraction. She was brought to the operating room today for laparoscopic cholecyst ectomy. Findings are consistent with markedly inflamed gallbladder in the usual anatomic location co mpletely encased by omental adhesions. Also noted were multiple lobular structures adherent to the g allbladder suspicious for lymphadenopathy. Frozen section of the lobular mass was obtained. DESCRIPTION OF PROCEDURE: Informed consent obtained from the patient who was brought to the operatin g room and placed in supine position. Following general anesthesia, the abdomen is sterilely prepped and draped in usual fashion. The skin below the umbilicus was infiltrated with 0.25% Marcaine with epinephrine. A small curvilinear infraumbilical incision is made using an 11 scalpel. Umbilical sta lk grasped with Yassine's and elevated. Veress needle was inserted through the incision and placed in the peritoneal cavity through which the abdomen was insufflated with 3 liters of CO2 gas. Intraabdo stacy pressure was noted at 2 mmHg. Following abdominal insufflation, Veress needle was removed and a 5 mm trocar introduced into the peritoneal cavity using the Visiport under laparoscopy. Laparoscop y confirmed proper placement of the port, no injuries to underlying structures. Additional laparoscop y reveals gallbladder in the usual anatomic location completely encased by dense omental adhesions. Under the laparoscopy, 12 mm epigastric and two 5 mm right lateral subcostal ports were placed after the overlying skin were infiltrated with 0.25% Marcaine with epinephrine and appropriate incisions ma de. The patient was placed in a reverse Trendelenburg position and rotated to her left. I then intr oduced [place] dissector with cautery, using this to take down omental adhesions meticulously to rev eal the markedly compressed by thick walled and necrotic gallbladder fundus. I attempted to grasp th e fundus of the gallbladder with a Prestige grasper from the right lateral subcostal port. This was not obtainable as the gallbladder wall was quite necrotic and disintegrated. We then meticulously to ok down omental adhesions to reveal additional gallbladder wall proximally. At this juncture, I reap plied the Prestige grasper to the body of the gallbladder which was pushed cephalad. Omental adhesio ns were then dissected free from the remainder of the gallbladder. I encountered multiple lobular st ructures adherent to the gallbladder suspicious for lymphadenopathy. I took one piece of this mass s ending this off to pathology for frozen section. Pathology reported this to be a fibrotic fat. Conf irming no neoplasm, we proceeded with laparoscopic cholecystectomy. A second Prestige grasper was in troduced through the right medial subcostal port grasping the Sukhdeep's pouch which was retracted la terally. Cystic duct was meticulously dissected free from surrounding structures at the triangle of Calot. The node of Calot was identified there. Once the cystic duct was dissected free from surroun ding structures, it was divided between clips, applying two clips proximally and one clip at the junc tion of the cystic duct and gallbladder. The cystic artery was also dissected free from surrounding structures and divided between clips in a similar fashion. Gallbladder itself was removed from the l iver bed using cautery. It was then delivered off the abdominal cavity using an EndoCatch. Operativ e site was irrigated with saline, noting some mild oozing from the gallbladder fossa which felt to be controlled using cautery. Ready hemostasis was achieved using Jenifer. Finding no other pathology, laparoscopy was terminated. A #19 Dawit drain was introduced into the subhepatic space and allowed t o exit the abdominal cavity through the right lateral subcostal port. The drain was secured to intra -abdominal wall using 2-0 silk suture. Fascia of the epigastric port site was then closed using 0 Vi cryl suture and Endo closure device under laparoscopy. Abdomen was desufflated. All ports and instr uments removed and accounted for. All skin incisions are then closed using 4-0 Monocryl suture in younger bcuticular fashion. Dermabond was applied to all incisions. The patient tolerated this operation wi thout any apparent complication and has returned to recovery room in a satisfactory condition.
[2017-11-05] MEDS: Acetaminophen 500 MG TAB PO SCH ×2 (17:54→20:56)
[2017-11-05] MEDS ORDERED: BUDESONIDE FORMOTEROL INH SCH (18:30)
[2017-11-05] MEDS: Ipratropium Bromide 2.5 ml Neb NEB SCH (19:11)
--- NOTE | 2017-11-05 20:39 | PDOC.PN ---
- Subjective Encounter Start Date: 11/05/17 Encounter Start Time: 20:38 Subjective: feels OK.S/P Lap mayela - Objective MAR Reviewed: Yes Vital Signs & Weight: Vital Signs (12 hours) Temp Pulse Resp BP BP Pulse Ox 11/05/17 19:07 16 11/05/17 18:10 65 22 H 143/85 H 97 11/05/17 16:40 97.1 F L 70 20 138/80 96 11/05/17 15:00 85 144/74 H Weight Admit Weight 245 lb Weight 245 lb I&O: 11/04/17 11/05/17 11/06/17 06:59 06:59 06:59 Intake Total 1500 4440 885 Output Total 400 2325 30 Balance 1100 2115 855 Result Diagrams: 11/03/17 01:21 11/03/17 01:21 Additional Labs: Accuchecks 11/05/17 11/05/17 17:17 05:33 POC Glucose 153 H 93 Laboratory Tests 11/03/17 11/03/17 11/04/17 01:14 01:21 08:38 Total Bilirubin 17.4 H 17.0 H AST 175 H 76 H ALT 159 H 98 H Alkaline Phosphatase 750 H 644 H Lipase 6737 H 75 Hepatitis A IgM Ab Non-Reactive Hep Bs Antigen Non-Reactive Hep B Core IgM Ab Non-Reactive Hepatitis C Antibody Non-Reactive 11/05/17 08:07 Total Bilirubin 12.9 H AST 50 H ALT 75 H Alkaline Phosphatase 532 H Lipase 37 Hepatitis A IgM Ab Hep Bs Antigen Hep B Core IgM Ab Hepatitis C Antibody Phys Exam - Physical Examination Constitutional: NAD HEENT: PERRLA, moist MMs, sclera anicteric, oral pharynx no lesions Neck: no nodes, no JVD, supple, full ROM Respiratory: no wheezing, no rales, no rhonchi, clear to auscultation bilateral Cardiovascular: RRR, no significant murmur Gastrointestinal: soft, non-tender, no distention, positive bowel sounds Musculoskeletal: no edema, pulses present Neurological: non-focal, normal sensation, moves all 4 limbs Psychiatric: normal affect, A&O x 3 Skin: no rash Dx/Plan (1) Gallstone pancreatitis Code(s): K85.10 - BILIARY ACUTE PANCREATITIS WITHOUT NECROSIS OR INFECTION Status: Acute Comment: s/p ERCP and lap mayela today. Continue PRN IV morphine (2) Obstructive jaundice Code(s): K83.8 - OTHER SPECIFIED DISEASES OF BILIARY TRACT Status: Acute (3) COPD (chronic obstructive pulmonary disease) Status: Chronic Comment: stable (4) DM type 2 (diabetes mellitus, type 2) Status: Chronic Comment: continue accuchecks, insulin sliding scale (5) HTN (hypertension) Code(s): I10 - ESSENTIAL (PRIMARY) HYPERTENSION Status: Chronic Comment: titrate antihypertensives as needed (6) MARSHALL (obstructive sleep apnea) Code(s): G47.33 - OBSTRUCTIVE SLEEP APNEA (ADULT) (PEDIATRIC) Status: Chronic Comment: CPAP when asleep - Plan DVT proph w/SCDs cont ABx,IVF.appreciate GS and GI input -: AM labs. -: LFTs better.follow * . Review of Systems - Medications/Allergies Allergies/Adverse Reactions: Allergies Allergy/AdvReac Type Severity Reaction Status Date / Time No Known Drug Allergies Allergy Verified 06/23/15 23:50 Medications: Current Medications Acetaminophen (Tylenol) 1,000 mg PO 0300,0900,1500,2100 [facility] Last Admin: 11/05/17 17:54 Dose: Not Given Al Hydroxide/Mg Hydroxide (Maalox) 30 ml PO Q6H PRN PRN Reason: Heartburn or Indigestion Albuterol/Ipratropium (Duoneb) 3 ml NEB Q4H PRN PRN Reason: Wheezing Last Admin: 11/05/17 19:07 Dose: 3 ml Bisacodyl (Dulcolax) 10 mg PO DAILYPRN PRN PRN Reason: Constipation Calcium Carbonate (Tums) 1,000 mg PO Q4H PRN PRN Reason: Heartburn or Indigestion Clonidine (Catapres) 0.1 mg PO Q4H PRN PRN Reason: Systolic BP > 160 Dextrose/Water (Dextrose 50%) 25 gm SLOW IVP PRN PRN PRN Reason: Hypoglycemia Famotidine (Pepcid) 20 mg SLOW IVP DAILY [facility] Last Admin: 11/05/17 08:55 Dose: 20 mg Furosemide (Lasix) 20 mg PO DAILY [facility] Glucagon (Glucagon) 1 mg IM PRN PRN PRN Reason: Hypoglycemia Hydralazine HCl (Apresoline) 10 mg SLOW IVP Q4H PRN PRN Reason: Systolic BP > 170 Dextrose/Water (D5w) 1,000 mls @ 0 mls/hr IV .Q0M PRN; As Directed PRN Reason: Hypoglycemia Potassium Chloride/Dextrose/Sod Cl (D5 1/2 Ns W/20 Meq Kcl) 1,000 mls @ 125 mls /hr IV .Q8H [facility] Last Admin: 11/05/17 17:54 Dose: Not Given Insulin Human Lispro (Humalog) 0 units SC .MODERATE SLIDING SC PRN PRN Reason: Moderate Correctional Scale Insulin Human Lispro (Humalog) 0 units SC .BEDTIME SLIDING SC PRN PRN Reason: Bedtime Correctional Scale Ipratropium Arboles (Atrovent) 2.5 ml NEB [id number] [facility] Last Admin: 11/05/17 19:11 Dose: Not Given Morphine Sulfate (Morphine) 4 mg SLOW IVP Q4H PRN PRN Reason: Breakthrough Pain Last Admin: 11/05/17 18:17 Dose: 4 mg Nitroglycerin (Nitrostat) 0.4 mg SL Q5MIN PRN PRN Reason: Chest Pain Ondansetron HCl (Zofran) 4 mg IVP Q6H PRN PRN Reason: Nausea/Vomiting (Budesonide- Formoterol [ Symbicort 160-4.5] Inhaler 2 each INH BID-RT [facility] Prednisone (Prednisone) 40 mg PO QA-[facility] Promethazine HCl (Phenergan) 12.5 mg IM Q4H PRN PRN Reason: Nausea/Vomiting Sodium Chloride (Flush - Normal Saline) 10 ml IVF Q12HR [facility] Last Admin: 11/05/17 08:55 Dose: Not Given Sodium Chloride (Flush - Normal Saline) 10 ml IVF PRN PRN PRN Reason: Saline Flush Theophylline (Theophylline Sr) 400 [facility] [place]
[2017-11-05] MEDS ORDERED: traMADol HCl 50 MG TAB PO SCH (21:15)
--- NOTE | 2017-11-05 23:38 | PRG ---
DATE OF SERVICE: 11/05/2017 SUBJECTIVE: The patient is currently on the surgical floor. She has been admitted for acute cholecy stitis and cholelithiasis and yesterday underwent laparoscopic cholecystectomy. Tonight, the patient states that her pain has not really been well controlled. Otherwise, she is tolerating a full liqui d diet. She has not had return of bowel function, but is having no difficulties urinating. PHYSICAL EXAMINATION: VITAL SIGNS: Temperature is 97.1, heart rate 70, blood pressure 143/85, respirations 16, oxygen satu ration is 97% on 2 liters via nasal cannula. GENERAL: The patient appears to be in some discomfort. She has not been medicated prior to my exami [facility]. The nurse was about to do so while I was there. Otherwise, she is alert and oriented x3. LUNGS: Showed some scattered rhonchi that clears with cough. HEART: Regular rate and rhythm. ABDOMEN: Soft, flat, and minimally tender with active bowel sounds. EXTREMITIES: Neurovascularly intact x4. ASSESSMENT AND PLAN: 1. Status post laparoscopic cholecystectomy. 2. Status post acute cholecystitis and cholelithiasis. PLAN: Plan will be to adjust the patient's p.o. pain medications, saline lock her IV, and continue s upportive care. Repeat labs in the morning and await discharge planning by primary team.
[2017-11-05] MEDS: HYDROcodone/Acetaminophen 7.5/325 mg Tablet PO PRN (23:55)
[2017-11-06] MEDS: Ipratropium Bromide 2.5 ml Neb NEB SCH ×3 (00:14→10:33)
[2017-11-06] MEDS ORDERED: cefTRIAXone\\ROCEPHIN 1 GM in Sterile Water 10 ML SLOW IVP SCH (01:00)
[2017-11-06] MEDS: Acetaminophen 325 MG TAB PO SCH ×4 (01:28→09:29)
[2017-11-06] MEDS: traMADol HCl 50 MG TAB PO SCH ×3 (03:15→09:29)
[2017-11-06 04:58] LABS: #Eosinphils 0.1 thou/uL (0.0-0.7); #Lymphocytes 1.1 thou/uL (1.20-3.40); #Monocytes 0.5 thou/uL (0.11-0.59); %Basophils 0.4 % (0.0-1.0); %Eosinophils 0.9 % (0.0-10.0); %Lymphocytes 10.4 % (21.0-51.0); %Monocytes 4.5 % (0.0-10.0); %Neutrophils 83.9 % (42.0-75.0); Hemoglobin 10.1 g/dL (12.0-16.0); Mean Corpuscular Volume 93.7 fl (81.0-99.0); Mean Platelet Volume 8.8 fL (7.4-10.4); Platelet Count 289 thou/uL (130-400); RBC Distribution Width 14.5 % (11.5-14.5); Red Blood Cell (RBC) Count 3.35 mill/uL (4.20-5.40); White Blood Cell (WBC) Count 10.7 thou/uL (4.8-10.8)
[2017-11-06 05:13] LABS: ALT (SGPT) 78 U/L (8-55); AST (SGOT) 71 U/L (5-34); Albumin 2.9 g/dL (3.4-4.8); Alkaline Phosphatase 499 U/L (40-150); Anion Gap 8 mmol/L (10-20); BUN (Urea Nitrogen) 16 mg/dL (9.8-20.1); Bilirubin, Direct 5.4 mg/dL (0.1-0.3); Bilirubin, Total 6.7 mg/dL (0.2-1.2); Calc. Creatinine Clearance 84 mL/min (70-130); Calcium 9.4 mg/dL (7.8-10.44); Carbon Dioxide 28 mmol/L (23-31); Chloride 104 mmol/L (98-107); Estimated GFR-MDRD 45; Glucose 100 mg/dL (80-115); Magnesium 1.7 mg/dL (1.6-2.6); Phosphorus 2.9 mg/dL (2.3-4.7); Potassium 4.8 mmol/L (3.5-5.1); Sodium 135 mmol/L (136-145)
[2017-11-06] MEDS: HYDROcodone/Acetaminophen 7.5/325 mg Tablet PO PRN ×2 (06:37→12:22)
[2017-11-06] MEDS ORDERED: predniSONE 20 MG TAB PO SCH ×2 (08:00)
[2017-11-06] MEDS ORDERED: Spiriva 18 MCG CAP (Box of 5 Caps) INH SCH (09:00)
[2017-11-06] MEDS ORDERED: Furosemide 20 MG TAB PO SCH (09:00)
[2017-11-06] MEDS: Famotidine 40 MG/4 ML VIAL SLOW IVP SCH (09:30)
--- NOTE | 2017-11-06 10:33 | PRG ---
DATE OF SERVICE: 11/06/2017 SUBJECTIVE: Ms. Spencer is a 62-year-old female who is postoperative day #1, status post laparoscopic cholecystectomy. She had a JOVON drain left in place. She has done well overnight. The pain has been well controlled. She has had return of bowel function. She has been up and ambulatory without assistance. OBJECTIVE: VITAL SIGNS: Temperature 97.7, pulse 61, respirations 18, O2 sat 95% on 3 liters nasal cannula, blood pressure 116/69. CONSTITUTIONAL: Obese female lying in bed in no acute distress. Generalized jaundice. HEENT: Atraumatic, normocephalic. PULMONARY: She is on 3 liters O2 nasal cannula. The patient reports using home O2. No respiratory distress. Breath sounds clear. CARDIOVASCULAR: Regular rate and rhythm. Heart sounds normal. ABDOMEN: Obese, nondistended, no masses, laparoscopic incisions closed. No signs of infection. Right lower quadrant JOVON drain with serosanguineous output. EXTREMITIES: Moves all extremities. Cap refill brisk. NEUROLOGIC: GCS 15. Awake, alert, oriented x3. LABORATORY DATA: WBC 10.7 down from 15.1, hemoglobin 10.1 down from 13.2, hematocrit 31.4 down from 40.8, platelets 289. Chemistry: Sodium 135, potassium 4.8, chloride 104, carbon dioxide 28, BUN 16, creatinine 1.22, total bilirubin 6.7 down from 12.9 yesterday. AST 71, ALT 78, alkaline phosphatase 499. ASSESSMENT: 1. Postoperative day #1 status post laparoscopic cholecystectomy. 2. Pain well controlled. 3. Return of bowel function. The patient tolerating regular diet. PLAN: 1. Discontinue JOVON drain. 2. May discharge home from surgical standpoint. The patient to follow up in [address] Peerz. Patient to have repeat LFTs prior to clinic appointment. We will arrange this from our office. The patient was reviewed with Dr. Perez who agrees with the plan. ABDIAZIZ
[2017-11-06 12:26] VITALS: BP 113/65; TEMP 98.1
[2017-11-06] MEDS ORDERED: metroNIDAZOLE 500 MG TAB PO SCH (15:00)
--- NOTE | 2017-11-06 15:52 | DIS ---
DATE OF ADMISSION: 11/03/2017 DATE OF DISCHARGE: 11/06/2017 CONDITION AT THE TIME OF DISCHARGE: Stable and improved. DISCHARGE DISPOSITION: Home. PRIMARY CARE PHYSICIAN: Dr. Warren Alcantara. DISCHARGE FOLLOWUP: 1. PCP. 2. General Surgery, Dr. Perez. DISCHARGE DIAGNOSES: 1. Gallstone pancreatitis. 2. Obstructive jaundice. 3. Transaminitis secondary to #1. 4. Chronic obstructive pulmonary disease. 5. Diabetes mellitus, type 2. 6. Hypertension. 7. Obstructive sleep apnea. DISCHARGE MEDICATIONS: Ciprofloxacin 500 mg p.o. b.i.d. for 7 more days and metronidazole 5 mg p.o. daily for 7 more days, Florastor 250 mg p.o. daily. Resume home medication as follows: Metformin 10 00 mg p.o. b.i.d., Lasix 20 mg an daily, sertraline 300 mg daily, DuoNeb as necessary, Spiriva 18 mcg daily, prednisone 40 mg daily, Sy mbicort 2 puffs b.i.d., Diabetic Tussin as needed, acetaminophen as needed, ProAir as needed. The migdalia corona has been instructed not to take her theophylline due to significant risk of side effects. PROCEDURES DONE IN THE HOSPITAL: 1. ERCP on 11/04/2017, which demonstrated retrograde opacification of the CBD and central intrahepat ic biliary system. No obvious persistent filling defects were seen. 2. Laparoscopic cholecystectomy on 11/04/2017 for choledocholithiasis and gallstone pancreatitis wit h intraoperative cholangiogram, which showed CBD dilated to 8-9 mm without any obvious filling defect s. The stone appears to have passed as the intra- and extrahepatic ducts were normal. Moderate sphi ncterotomy was performed. 3. CT scan of the abdomen and pelvis on 11/02/2017 at outside emergency room, which showed choledoch olithiasis with prominent intrahepatic and extrahepatic biliary ductal dilatation and left adnexal cy st and colonic diverticulosis. CONSULTATIONS: General Surgery, Dr. Sánchez; General Surgery, Dr. Perez. HISTORY OF PRESENT ILLNESS: Ms. Spencer is a pleasant 62-year-old female with past medical history of diabetes, hypertension, COPD, sleep apnea, pulmonary hypertension, who presented to the emergency mike with complaints of nausea, vomiting, fever, chills, and abdominal pain. She was found to have sign ificant obstructive jaundice, hyperbilirubinemia, and transaminitis on presentation. She was also fo und to have an elevated amylase and lipase at 1763 and 7712 respectively. Also had leukocytosis with left shift. CT scan of the abdomen showed choledocholithiasis. She was started on empiric antibiot ics and IV fluids and was admitted for further evaluation and GI and General Surgery were consulted. The presumptive diagnosis was acute gallstone pancreatitis. She was kept n.p.o. Please see admissi on history and physical for further details. HOSPITAL COURSE: The patient was seen both by GI and General Surgery. Her liver enzymes were trende d. She underwent an ERCP, which was unremarkable and then proceeded with a laparoscopic cholecystect jaylyn done by Dr. Perez. Her gallbladder was quite thick walled and it seemed like she might have some chronicity to her symptoms. Intraoperative cholangiogram was clean and it seemed like the stone alex ht have just passed. The patient's liver enzymes and bilirubin and lipase normalized quite quickly a fter the ERCP. She was monitored after the laparoscopic cholecystectomy overnight, which was done yesterday. As of this morning, she has been cleared by Surgery for discharge. She is feeling well and is eager to go home and her pain is under very well control. She is instructed to continue the oral antibiotic for a few more days. Prescriptions were provided, questions were answered, and she verbalized understand ing. PHYSICAL EXAMINATION: She was seen and examined prior to discharge. VITAL SIGNS: Temperature 98.1, heart rate of 59-61, respirations 18, saturating 92% on room air, blo od pressure 103/65. GENERAL: No acute distress. Awake, alert, oriented x3. Walking around in the room. CHEST: Clear to auscultation. CARDIOVASCULAR: Rate and rhythm is regular. ABDOMEN: Soft, nontender, nondistended. Surgical scar appears healing well. LABORATORY EXAMINATION: CBC shows WBCs at 10.7, which was 15.1 upon admission with 83% neutrophils. Serum chemistries show bilirubin 6.7 down from 17.4 and lipase improved from 7700-37. She is instructed to follow up with her PCP as well as with surgeon in 2 weeks of duration. Total ti me spent in the discharge of this patient, 32 minutes.
[2017-11-06] MEDS ORDERED: Cipro 250 MG TAB PO SCH (20:00)
== END 2017-11-06 12:30 | disposition home or self-care (01) | DRG 417 ==
LOC: ERS 23:04 → SURG B 23:46
PROVIDERS: ADMIT Internal Medicine; ATTEND Internal Medicine
PROC: 0F798ZZ Dilation of Common Bile Duct, Via Natural or Artificial Opening Endoscopic (ICD-10-PCS; 2017-11-04)
PROC: 0FBC8ZX Excision of Ampulla of Vater, Via Natural or Artificial Opening Endoscopic, Diagnostic (ICD-10-PCS; 2017-11-04)
PROC: 0FT44ZZ Resection of Gallbladder, Percutaneous Endoscopic Approach (ICD-10-PCS; principal; 2017-11-05)
DX: K80.63 Calculus of gallbladder and bile duct with acute cholecystitis with obstruction (principal); K85.10 Biliary acute pancreatitis without necrosis or infection; J96.10 Chronic respiratory failure, unspecified whether with hypoxia or hypercapnia; Z68.41 Body mass index [BMI] 40.0-44.9, adult; N39.0 Urinary tract infection, site not specified; I27.20 Pulmonary hypertension, unspecified; Z99.81 Dependence on supplemental oxygen; E66.01 Morbid (severe) obesity due to excess calories; J44.9 Chronic obstructive pulmonary disease, unspecified; E11.9 Type 2 diabetes mellitus without complications; G47.33 Obstructive sleep apnea (adult) (pediatric); I10 Essential (primary) hypertension; F41.9 Anxiety disorder, unspecified; F32.9 Major depressive disorder, single episode, unspecified; Z87.891 Personal history of nicotine dependence; Z79.84 Long term (current) use of oral hypoglycemic drugs; Z79.899 Other long term (current) drug therapy
CPT/HCPCS: 36415; 36416; 74330; 80048; 80074; 80076; 83690; 83735; 84100; 85025; 88304; 88305; 88331; 94002; 94640; 94660; 96374; A4216; J0696; J1100; J1720; J2001; J2270; J2405; J2704; J3010; J7506; J7620; J7644; Q9961; S0028

== ENCOUNTER 2020-08-15 19:00 | Outpatient (CLI) | payer MEDICARE, MEDICAID | END 2020-08-15 19:01 | disposition home or self-care (01) | LOC: SLEEPLAB 19:00 | PROVIDERS: ATTEND Family Medicine | DX: G47.33 Obstructive sleep apnea (adult) (pediatric) (principal); E66.9 Obesity, unspecified; G47.10 Hypersomnia, unspecified; I10 Essential (primary) hypertension; J44.9 Chronic obstructive pulmonary disease, unspecified; E11.9 Type 2 diabetes mellitus without complications; G47.00 Insomnia, unspecified; F32.9 Major depressive disorder, single episode, unspecified; R09.02 Hypoxemia; Z68.37 Body mass index [BMI] 37.0-37.9, adult | CPT/HCPCS: 95810 ==

== ENCOUNTER 2020-09-04 19:00 | Outpatient (CLI) | payer MEDICARE, MEDICAID | END 2020-09-04 19:01 | disposition home or self-care (01) | LOC: SLEEPLAB 19:00 | PROVIDERS: ATTEND Family Medicine | DX: G47.33 Obstructive sleep apnea (adult) (pediatric) (principal); G47.10 Hypersomnia, unspecified; J44.9 Chronic obstructive pulmonary disease, unspecified; R06.83 Snoring; R09.02 Hypoxemia; E66.9 Obesity, unspecified; Z68.37 Body mass index [BMI] 37.0-37.9, adult | CPT/HCPCS: 95811 ==